=== PATIENT | male | born 1980 | race Caucasian/White ===

== ENCOUNTER 2018-03-09 01:48 | Emergency (ER) | payer OTHER, SELFPAY ==
[2018-03-09 02:11] VITALS: BMI 31.5
[2018-03-09 02:21] VITALS: BP 115/71; PULSE 77; RESP 15; TEMP 37.1; O2SAT 96; BMI 31.5
[2018-03-09 03:06] LABS: Urine Amphetamines Negative (Negative); Urine Barbiturates Negative (Negative); Urine Benzodiazepines Negative (Negative); Urine Cocaine Negative (Negative); Urine MDMA Negative (Negative); Urine Methadone Negative (Negative); Urine Methamphetamines Negative (Negative); Urine Morphine/Opi cutoff 2000 Negative (Negative); Urine Oxycodone Negative (Negative); Urine Phencyclidine Negative (Negative); Urine Tetrahydrocannabinol Negative (Negative); Urine Tricyclic Antidepressant Negative (Negative)
--- NOTE | 2018-03-09 03:27 | ED_ITS ---
HPI - Alcohol <Misty Juan J Yeung DO - Last Filed: 03/16/18 18:59> General Chief Complaint: Toxicology Problem Stated Complaint: ETOH Time Seen by Provider: 03/09/18 02:54 Source: patient, EMS and police Mode of arrival: EMS Limitations: altered mental status History of Present Illness HPI narrative: This is a 37-year-old male who was brought by EMS after being found in his car parked with the motor running and appearing intoxicated. Patient was somewhat difficult to awaken for the police department. EMS was contacted and they transferred the patient here to the ED. Patient initially was was able to walk to the bathroom give us a urine sample and return to room under his own power. Patient states he he has had beer and some hard liquor this evening. Denies other illicit. Patient does have prescription for gabapentin and escitalopram. The patient was not very interested in answering questions and went back to sleep. MD complaint: alcohol intoxication Related Data Home Medications Medication Instructions Recorded Confirmed buprenorphine-naloxone [Suboxone] 1 mirtha SUBLINGUAL #0 04/01/16 Previous Rx's Medication Instructions Recorded cyclobenzaprine 10 mg PO TIDP PRN #21 tab 04/01/16 gabapentin [Neurontin] 900 mg PO BID #180 cap 04/04/16 cyclobenzaprine 10 mg PO TID #21 tab 04/07/16 Allergies Allergy/AdvReac Type Severity Reaction Status Date / Time Penicillins [PENICILLINS] Allergy Unknown Unverified 09/06/17 11:53 Review of Systems <Misty Yeung DO - Last Filed: 03/16/18 18:59> Review of Systems All systems reviewed & are unremarkable except as noted in HPI and below Exam <Misty Yeung DO - Last Filed: 03/16/18 18:59> Narrative Exam Narrative: GEN: well nourished, well appearing male, awakens to verbal stimuli,, patient appears to be in mild distress. Patient appears intoxicated HEENT: Atraumatic HEART: Regular rate and rhythm without murmur, clicks, rubs. No carotid bruits , pulses are equal in upper and lower extremities LUNGS:Lungs clear to auscultation, no wheezes, rales, crackles, chest moves symmetrically ABD:bowel sounds normal, soft, non-tender, no guarding, rebound, rigidity MSCL: Non-tender,full range of motion, normal gait NEURO:CN 2-12 intact, sensation normal Initial Vital Signs Initial Vital Signs: Vital Signs Temperature 98.7 F 03/09/18 02:21 Pulse Rate 77 03/09/18 02:21 Respiratory Rate 15 03/09/18 02:21 Blood Pressure 115/71 03/09/18 02:21 Pulse Oximetry 96 03/09/18 02:21 <Harsha Martinez, DO - Last Filed: 03/09/18 08:30> Initial Vital Signs Initial Vital Signs: Vital Signs Temperature 98.7 F 03/09/18 02:21 Pulse Rate 77 03/09/18 02:21 Respiratory Rate 15 03/09/18 02:21 Blood Pressure 115/71 03/09/18 02:21 Pulse Oximetry 96 03/09/18 02:21 Course <Misty Yeung, DO - Last Filed: 03/16/18 18:59> Orders Ordered: ED Orders 03/09/18 02:00 Urine Drug Screen, Rapid Stat Reevaluation(s) Reevaluation #1: patient sleeping, normal respirations. Time: 04:15 Reevaluation #2: patient sleeping, easily arousable. Time: 05:35 Vital Signs - 8 hr 03/09/18 02:21 03/09/18 08:15 Temperature 98.7 F Pulse Rate 77 81 Respiratory Rate 15 18 Blood Pressure 115/71 Blood Pressure [Right Arm] 136/92 H Pulse Oximetry 96 98 <Harsha Martinez, DO - Last Filed: 03/09/18 08:30> Orders Ordered: ED Orders 03/09/18 02:00 Urine Drug Screen, Rapid Stat Reevaluation(s) Reevaluation #1: Patient speaks clearly and walks a straight line. He has capacity to make his own decisions and is requesting discharge. He states he lives 2 blocks away and plans to walk there and is requesting his phone and keys. A very strong suggestion not to go to his vehicle was made he states he would do what he wanted. Nursing did obtain bedside breathalyzer noting 0.086. We mentioned this to the patient, requested his keys back and he took them and left. Police notified Time: 08:10 Vital Signs - 8 hr 03/09/18 02:21 03/09/18 08:15 Temperature 98.7 F Pulse Rate 77 81 Respiratory Rate 15 18 Blood Pressure 115/71 Blood Pressure [Right Arm] 136/92 H Pulse Oximetry 96 98 MDM - Alcohol <Misty C Anjana, DO - Last Filed: 03/16/18 18:59> Lab Data Labs: Lab Results 03/09/18 Range/Units 02:00 Urine Opiates Screen Negative (Negative) Ur Oxycodone Screen Negative (Negative) Urine Methadone Screen Negative (Negative) Ur Barbiturates Screen Negative (Negative) U Tricyclic Antidepress Negative (Negative) Ur Phencyclidine Scrn Negative (Negative) Ur Amphetamines Screen Negative (Negative) U Methamphetamines Scrn Negative (Negative) Ur MDMA Scrn (Ecstasy) Negative (Negative) U Benzodiazepines Scrn Negative (Negative) Urine Cocaine Screen Negative (Negative) U Marijuana (THC) Screen Negative (Negative) MDM Narrative Medical decision making narrative: Patient continues to be monitored in the department. Signed out to Dr. Martinez for final disposition. <Harsha Martinez, DO - Last Filed: 03/09/18 08:30> Lab Data Labs: Lab Results 03/09/18 Range/Units 02:00 Urine Opiates Screen Negative (Negative) Ur Oxycodone Screen Negative (Negative) Urine Methadone Screen Negative (Negative) Ur Barbiturates Screen Negative (Negative) U Tricyclic Antidepress Negative (Negative) Ur Phencyclidine Scrn Negative (Negative) Ur Amphetamines Screen Negative (Negative) U Methamphetamines Scrn Negative (Negative) Ur MDMA Scrn (Ecstasy) Negative (Negative) U Benzodiazepines Scrn Negative (Negative) Urine Cocaine Screen Negative (Negative) U Marijuana (THC) Screen Negative (Negative) Discharge Plan Departure Patient Disposition: Home Clinical Impression: Alcohol intoxication Discharge Date/Time: 03/09/18 08:26 Interventions: ED Discharge Assessment Last Done: 03/09/18 08:21 Instructions: DI for Alcohol Abuse Activity Restrictions/Additional Instructions: It is recommended that you stop drinking alcohol. If you feel you need to go to [facility]. Call had of time ([phone]) to inquire about an available bed. If there are no beds called daily and 9 AM and 9 PM to check on bed availability. If you're feeling suicidal or having suicidal thoughts, contact the suicide hotline: . Prescriptions: No Action buprenorphine-naloxone [Suboxone] 12 MG/3 MG film 1 mirtha Sublingual Qty: 0 RF: 0 cyclobenzaprine 10 MG tablet 10 mg PO TIDP PRNQty: 21 RF: 0 gabapentin [Neurontin] 300 MG capsule 900 mg PO BID Qty: 180 RF: 1 cyclobenzaprine 10 MG tablet 10 mg PO TID Qty: 21 RF: 0
[2018-03-09 08:15] VITALS: BP 136/92; PULSE 81; RESP 18; O2SAT 98
== END 2018-03-09 08:26 | disposition home or self-care (01) ==
PROVIDERS: Emergency Medicine; Emergency Provider Emergency Medicine; PCP Preventive Medicine Public Health & General Preventive Medicine
DX: F10.929 Alcohol use, unspecified with intoxication, unspecified (principal)
CPT/HCPCS: 80305; 99282; 99283

== ENCOUNTER 2018-07-14 08:51 | Emergency (ER) | payer OTHER, SELFPAY ==
[2018-07-14 09:04] VITALS: BP 145/89; PULSE 123; RESP 20; TEMP 37.6; O2SAT 95; BMI 31.5
--- NOTE | 2018-07-14 09:16 | PC.NURSE ---
Pt states son positive for flu, flu test sent
--- NOTE | 2018-07-14 09:49 | ED.URI ---
HPI - URI/Sore Throat General Chief Complaint: Upper Respiratory Symptoms Stated Complaint: States fever, body aches, cough, vomiting Time Seen by Provider: 07/14/18 09:49 Source: patient and other (significant other) Mode of arrival: ambulatory Limitations: no limitations History of Present Illness HPI Narrative: This is a 37-year-old male comes to the emergency department with complaint of headache, body aches, low-grade temperatures, chills nausea and vomiting. Patient states symptoms started mildly day and got much worse yesterday. He states today that he definitely patient states that he took ibuprofen last night but has not taken anything today. He has been coughing, not particularly productive. No shortness of breath. He had vomiting today 1 episode that lasted about 5 min and no other episodes. He states he has had diarrhea and constipation when asked more specifically he states they have been alternating. Patient denies any medical problems. He initially denies taking any medications but then when question because he has a medication lift did state he takes gabapentin. Related Data Home Medications Medication Instructions Recorded Confirmed buprenorphine-naloxone [Suboxone] 1 mirtha SUBLINGUAL #0 04/01/16 Previous Rx's Medication Instructions Recorded cyclobenzaprine 10 mg PO TIDP PRN #21 tab 04/01/16 gabapentin [Neurontin] 900 mg PO BID #180 cap 04/04/16 cyclobenzaprine 10 mg PO TID #21 tab 04/07/16 ondansetron HCl [Zofran] 4 mg PO Q6-8H PRN #7 tab 07/14/18 oseltamivir [Tamiflu] 75 mg PO BID 5 Days #10 cap 07/14/18 Allergies Allergy/AdvReac Type Severity Reaction Status Date / Time Penicillins [PENICILLINS] Allergy Unknown Verified 07/14/18 10:03 Review of Systems Review of Systems ROS Unobtainable: All systems reviewed & are unremarkable except as noted in HPI and below Constitutional Reports chills, Denies fever(s), Reports headache(s), Denies lethargy and Denies weakness ENT Ears, Nose, Mouth, and Throat: Reports headache(s) Cardiovascular Denies chest pain, Denies irregular heart rhythm, Denies dyspnea and Denies dyspnea on exertion Respiratory Denies chest congestion, Reports cough, Denies excessive phlegm production, Denies dyspnea, Denies dyspnea on exertion and Denies wheezing Gastrointestinal Gastrointestinal: Denies abdominal pain, Denies change in bowel habits, Reports constipation, Reports diarrhea, Reports nausea and Reports vomiting Musculoskeletal Reports myalgias Integumentary/Breasts Denies rash Neurologic Reports headache(s) and Denies weakness Allergic/Immunologic Denies wheezing FOR[facility], [facility] Social History Smoking Status: Current some day smoker Social History Smoking Status: Current some day smoker Exam Narrative Exam Narrative: GEN: well nourished, well appearing male, alert and oriented x 3, patient appears to be in mild distress. HEENT: Atraumatic, pupils are equal round reactive to light, extraocular movements are intact, nares scant clear rhinorrhea, TMs are clear with no fluid, there is no conjunctival pallor. Throat is clear without any exudates, erythema, tonsillar enlargement or uvular deviation, no meningeal signs. HEART: Regular rate and rhythm without murmur, clicks, rubs. LUNGS:Lungs clear to auscultation, no wheezes, rales, crackles, chest moves symmetrically ABD:bowel sounds normal, soft, non-tender, no guarding, rebound, rigidity, no masses noted, no hepatosplenomegaly :No CVA tenderness MSCL: Non-tender, no muscle atrophy, muscles strength 5/5 upper and lower extremities, full range of motion NEURO:CN 2-12 intact, sensation normal. SKIN: No rashes, no petechiae Initial Vital Signs Initial Vital Signs: Vital Signs Temperature 99.7 F H 07/14/18 09:04 Pulse Rate 123 H 07/14/18 09:04 Respiratory Rate 20 07/14/18 09:04 Blood Pressure 145/89 H 07/14/18 09:04 Pulse Oximetry 95 07/14/18 09:04 Course Orders Ordered: ED Orders 07/14/18 09:15 Influenza A and B by PCR Rapid Stat Discontinued Medications Ketorolac Tromethamine (Toradol) 60 mg IM NOW ONE Stop: 07/14/18 09:59 Last Admin: 07/14/18 10:02 Dose: 60 mg Ondansetron HCl (Zofran Odt) 4 mg SL NOW ONE Stop: 07/14/18 09:59 Last Admin: 07/14/18 10:02 Dose: 4 mg Vital Signs - 8 hr 07/14/18 09:04 07/14/18 10:02 07/14/18 10:32 Temperature 99.7 F H 99.7 F H 99.7 F H Pulse Rate 123 H 110 H Respiratory Rate 20 20 Blood Pressure 145/89 H 117/68 Pulse Oximetry 95 94 MDM - URI/Sore Throat Lab Data Attestation: I reviewed the patient's lab results. Lab Results 07/14/18 Range/Units 09:15 Influenza A & B (PCR) Positive, type a A (Negative) MDM Narrative Medical decision making narrative: Discussed with patient he is influenza positive. He is in the time frame for Tamiflu and he elects to start Tamiflu. Patient was initially not very forthcoming with his history and had to be questioned multiple times to get what I believe is his full past medical history. We did give patient some Toradol as well some Zofran for nausea. He is not vomiting currently the department. Patient given a short-term script for Zofran as well. He does work at the [employer] with multiple people so given a work note. Discharge Plan Departure Patient Disposition: Home Clinical Impression: Influenza Discharge Date/Time: 07/14/18 10:33 Interventions: ED Discharge Assessment Last Done: 07/14/18 10:32 Instructions: DI for Influenza -- Adult Activity Restrictions/Additional Instructions: Follow-up with primary care if your symptoms are not resolving the next 7-10 days. Continue ibuprofen and/or Tylenol as needed for fevers/muscle aches Take Tamiflu twice daily x 5 days. You may continue home medications as prescribed. Return to the emergency department for persistent fevers that do not respond to ibuprofen and/or Tylenol, new chest, shortness of breath, difficulty with breathing, passing out, persistent vomiting or other new or concerning symptoms. Prescriptions: New oseltamivir [Tamiflu] 75 mg capsule 75 mg PO BID 5 Days Qty: 10 RF: 0 ondansetron HCl [Zofran] 4 mg tablet 4 mg PO Q6-8H PRN (Reason: nausea and vomiting) Qty: 7 RF: 0 No Action buprenorphine-naloxone [Suboxone] 12 MG/3 MG film 1 mirtha Sublingual Qty: 0 RF: 0 cyclobenzaprine 10 MG tablet 10 mg PO TIDP PRNQty: 21 RF: 0 gabapentin [Neurontin] 300 MG capsule 900 mg PO BID Qty: 180 RF: 1 cyclobenzaprine 10 MG tablet 10 mg PO TID Qty: 21 RF: 0 Referrals: Lenin Rincon MD [Primary Care Provider] - Stand Alone Forms: Work Release Note
[2018-07-14 10:02] VITALS: TEMP 37.6
[2018-07-14] MEDS: ONDANSETRON 4 MG ODT SL (10:02)
[2018-07-14] MEDS: KETOROLAC 60 MG/2 ML VIAL IM (10:02)
[2018-07-14 10:32] VITALS: BP 117/68; PULSE 110; RESP 20; TEMP 37.6; O2SAT 94
== END 2018-07-14 10:33 | disposition home or self-care (01) ==
PROVIDERS: Emergency Provider Emergency Medicine; PCP Preventive Medicine Public Health & General Preventive Medicine
DX: J11.1 Influenza due to unidentified influenza virus with other respiratory manifestations (principal)
CPT/HCPCS: 87400; 96372; 99282; 99283; J1885

== ENCOUNTER → 2018-07-24 14:56 | Outpatient (CLI) | payer OTHER, SELFPAY ==
[2018-07-24 15:24] LABS: Influenza A and B by PCR Rapid Negative (Negative)
== END ==
PROVIDERS: PCP Preventive Medicine Public Health & General Preventive Medicine; Visit Provider Physician Assistant
DX: J11.1 Influenza due to unidentified influenza virus with other respiratory manifestations (principal)
CPT/HCPCS: 87400

== ENCOUNTER → 2018-07-24 15:30 | Outpatient (CLI) | payer OTHER, SELFPAY ==
--- NOTE | 2018-07-24 15:33 | DI.RAD.S_ITS ---
PROCEDURE: XR CHEST 2V INDICATIONS: worsening cough TECHNIQUE: 2 views of the chest were acquired. COMPARISON: [facility], , CHEST 1 VIEW, 08/24/2015, 11:30. FINDINGS: Surgical changes and devices: None. Lungs and pleura: Lungs are clear. No pleural effusions or pneumothorax. Mediastinum: Mediastinal contours are normal. Heart size is normal. Bones and chest wall: No suspicious bony abnormalities. Soft tissues appear unremarkable. IMPRESSION: No acute disease Dictated by: Hans Earl M.D. on 07/24/2018 at 16:04 Approved by: Hans Earl M.D. on 07/24/2018 at 16:05
== END ==
LOC: DI 15:32
PROVIDERS: Visit Provider Physician Assistant
DX: R05 Cough (principal)
CPT/HCPCS: 71046; 87400

== ENCOUNTER 2020-01-22 20:58 | Emergency (ER) | payer OTHER, MEDICAID, SELFPAY ==
[2020-01-22 21:10] VITALS: BP 144/94; PULSE 110; RESP 15; TEMP 37.3; O2SAT 97; BMI 32.3
[2020-01-22] MEDS: LIDOCAINE 2% INJ MDV 20 ML (21:26)
--- NOTE | 2020-01-22 22:06 | ED_ITS ---
HPI - Wound/Laceration General Chief Complaint: Wound/Laceration Stated Complaint: left 5th finger cut Time Seen by Provider: 01/22/20 21:14 Source: patient and family Mode of arrival: Family Vehicle Limitations: no limitations History of Present Illness HPI narrative: Patient complains of laceration to the dorsal surface of the left 5th digit just distal to the MCP joint. Bleeding controlled. No numbness tingling or weakness. Related Data Home Medications Medication Instructions Recorded Confirmed buprenorphine-naloxone [Suboxone] 1 mirtha SUBLINGUAL #0 04/01/16 Previous Rx's Medication Instructions Recorded gabapentin [Neurontin] 900 mg PO BID #180 cap 04/04/16 ondansetron HCl [Zofran] 4 mg PO Q6-8H PRN #7 tab 07/14/18 sulfamethoxazole-trimethoprim 1 tab PO BID #10 tab 01/22/20 [Bactrim DS] Allergies Allergy/AdvReac Type Severity Reaction Status Date / Time Penicillins [PENICILLINS] Allergy Unknown Verified 07/24/18 14:55 Review of Systems Review of Systems Narrative: GENERAL: Denies chills, fatigue, malaise, fever, sweats. MUSCULOSKELETAL: denies weakness, joint pain, or bony pain, complains of finger pain SKIN: Denies rash, skin lesions, or other NEUROLOGIC: Denies weakness, numbness tingling or weakness PSYCHIATRIC: No concerning psychosocial issues. ROS Unobtainable: All systems reviewed & are unremarkable except as noted in HPI and below Patient History Social History Smoking Status: Current every day smoker Smoking Status: Current every day smoker alcohol intake frequency: 3 or more drinks per day Substance Use Type: former substance user Exam Narrative Exam Narrative: GENERAL: patient appears stated age. Well-nourished, well- developed patient, in no distress, not toxic HEAD: Atraumatic. Normocephalic. EXTREMITIES: No edema or joint tenderness. Examination left hand. There is a 2.5 cm oblique laceration on dorsal surface of the 5th digit just distal to the MCP joint. Examination in bloodless field. Blood pressure cuff used to reduce blood flow for hemostasis. Increments of 2 minutes at a time for examination as well as for suturing. There is no no bone or tendon injury seen. Patient able to flex and extend at the MCP PIP and PIP joints individually and against resistance. NEURO: AOx4. SKIN: No rash or erythema of visible areas PSYCH: Not anxious, is cooperative Initial Vital Signs Initial Vital Signs: Vital Signs Temperature 99.2 F 01/22/20 21:10 Pulse Rate 110 H 01/22/20 21:10 Respiratory Rate 15 01/22/20 21:10 Blood Pressure 144/94 H 01/22/20 21:10 Pulse Oximetry 97 01/22/20 21:10 Procedures Laceration Repair Laceration 1: Site: other (Left 5th digit) Side (If applicable): left Size (cm): 2.5 Description: linear Depth: simple, single layer Local Anesthetic: lidocaine 2% Amount of anesthesia used (mL): 2 Pre-repair: wound explored and irrigated extensively Skin layer closed with: nylon Size (cm): 4-0 Number of sutures: 6 Technique: simple, interrupted Course Orders Ordered: Discontinued Medications Bacitracin (Bacitracin) 1 applic TOP NOW ONE Stop: 01/22/20 22:12 Last Admin: 01/22/20 22:14 Dose: 1 applic Documented by: ANGELO Diphtheria/Tetanus/Acell Pertussis (Adacel) 0.5 ml IM .ONCE ONE Stop: 01/22/20 22:07 Last Admin: 01/22/20 22:13 Dose: 0.5 ml Documented by: ANGELO Trimethoprim/Sulfamethoxazole (Bactrim Ds) 1 tab PO NOW ONE Stop: 01/22/20 22:07 Last Admin: 01/22/20 22:12 Dose: 1 tab Documented by: OLIVERL Reevaluation(s) Reevaluation #1: No bleeding at time of discharge. Sensation intact to tip of finger, hand and fingers on the left side warm soft and pink. Brisk cap refills Time: 22:12 Consultations Consultation #1: s/w ortho dr back, appropriate treatment done here. He will see patient in the office. Stitches out in 12 days. Time: 22:13 Vital Signs Vital signs: Vital Signs - 8 hr 01/22/20 21:10 01/22/20 22:32 Temperature 99.2 F Pulse Rate 110 H 88 Respiratory Rate 15 16 Blood Pressure 144/94 H 139/81 Pulse Oximetry 97 99 MDM - Wound/Laceration Differential Diagnosis Differential diagnosis: Likely laceration MDM Narrative Medical decision making narrative: No imaging indicated this time. Based visualized bloodless. No foreign body seen no bony injury or tendon injury seen. Discharge Plan Departure Patient Disposition: Home Clinical Impression: Laceration Discharge Date/Time: 01/22/20 22:32 Instructions: DI for Laceration Repair Activity Restrictions/Additional Instructions: Change dressing twice a day with warm soap and water then apply topical antibiotic and nonocclusive dressing. Keep in splint until office time in 12 days to have 6 stitches removed. Return if worse or if any questions or con cerns or fever or increased pain in the finger discharge from the finger or discoloration of the finger. Called provided orthopedic office in the morning for office recheck within a week. Be sure to complete antibiotic prescription. 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 This may cause tearing of the stitches and skin. Prescriptions: New sulfamethoxazole-trimethoprim [Bactrim DS] 800-160 mg tablet 1 tab PO BID Qty: 10 RF: 0 No Action buprenorphine-naloxone [Suboxone] 12 MG/3 MG film 1 mirtha Sublingual Qty: 0 RF: 0 gabapentin [Neurontin] 300 MG capsule 900 mg PO BID Qty: 180 RF: 1 ondansetron HCl [Zofran] 4 mg tablet 4 mg PO Q6-8H PRN (Reason: nausea and vomiting) Qty: 7 RF: 0 Referrals: Sharmin Ribeiro MD [Primary Care Provider] - Sonny Back MD [Physician] -
[2020-01-22] MEDS: TRIMETH/SULFA 160/800 (DS) TABLET 1 TAB PO (22:12)
[2020-01-22] MEDS: TET,DIPH,PERTUSS(ACELL),VAC/PF 0.5 ML SYRINGE IM (22:13)
[2020-01-22] MEDS: BACITRACIN OINT 0.9 GM PCKT 1 APPLIC TOP (22:14)
[2020-01-22 22:32] VITALS: BP 139/81; PULSE 88; RESP 16; O2SAT 99
== END 2020-01-22 22:32 | disposition home or self-care (01) ==
PROVIDERS: Emergency Provider Emergency Medicine; PCP Family Medicine
DX: S61.217A Laceration without foreign body of left little finger without damage to nail, initial encounter (principal); W45.8XXA Other foreign body or object entering through skin, initial encounter; Z23 Encounter for immunization
CPT/HCPCS: 12001; 90471; 99283; 99284; 90715

== ENCOUNTER 2020-08-09 18:46 | Emergency (ER) | payer OTHER, MEDICAID, SELFPAY ==
[2020-08-09 19:00] VITALS: BP 149/76; PULSE 100; RESP 16; TEMP 36.8; O2SAT 97; BMI 33.0
--- NOTE | 2020-08-09 19:15 | ED.SKABFB ---
HPI - Skin/Abscess/Foreign Bdy General Chief complaint: Skin/Abscess/Foreign Body Stated complaint: Rt leg/pelvic/abdomen pain/ Swelling Time Seen by Provider: 08/09/20 19:15 Source: patient Mode of arrival: Ambulatory Limitations: no limitations History of Present Illness HPI narrative: 39-year-old gentleman presents with history of chronic pain syndrome and history of prescription opioid overuse currently on Suboxone with current complaint of itching and pain in the groin and around his scrotum. He notes multiple areas of cysts some of which are draining over his scrotum and and increased area pain and tenderness in the right groin with significant pruritus in that area as well. No fevers, dysuria, abdominal pain, flank pain no new sexual contacts or concerns for track sexually transmitted infection. He does note that he did recently have bilateral fungal infections to the palms of both hands and is worried that this may have spread to his scrotum. He has been using fluconazole cream to hands and scrotum. Related Data Home Medications Medication Instructions Recorded Confirmed buprenorphine-naloxone [Suboxone] 1 mirtha SUBLINGUAL #0 04/01/16 Previous Rx's Medication Instructions Recorded gabapentin [Neurontin] 900 mg PO BID #180 cap 04/04/16 ondansetron HCl [Zofran] 4 mg PO Q6-8H PRN #7 tab 07/14/18 sulfamethoxazole-trimethoprim 1 tab PO BID #10 tab 01/22/20 [Bactrim DS] buprenorphine-naloxone [Suboxone] 1 film BUCCAL TID 4 Days #4 ea 08/09/20 clindamycin HCl 300 mg PO TID #30 cap 08/09/20 sulfamethoxazole-trimethoprim 1 tab PO BID #20 tab 08/09/20 [Bactrim DS] Allergies Allergy/AdvReac Type Severity Reaction Status Date / Time Penicillins [PENICILLINS] Allergy Unknown Verified 08/09/20 19:00 Review of Systems Review of Systems ROS Unobtainable: All systems reviewed & are unremarkable except as noted in HPI and below Patient History Medical History Chronic pain syndrome Social History Smoking Status: Current every day smoker Smoking Status: Current every day smoker alcohol intake frequency: 3 or more drinks per day Substance Use Type: former substance user Exam Narrative Exam Narrative: General: Healthy appearing, in no acute distress. Able to give a complete and coherent history. Well-nourished well-developed HEENT: Moist mucous membranes, normal sclera with reactive pupils, Respiratory: Lungs are clear to auscultation, no wheezing no rales no rhonchi. Full and symmetrical air movement Cardiac: Regular rate and rhythm no murmurs no bruits Abdomen: Soft, nontender, good bowel tones, no flank pain Skin: Warm and dry, Genital: Multiple seborrheic cysts anywhere from 3-7 mm 1 of which is slightly draining (cultures obtained) none of which appear acutely infected. Possibility of hidradenitis suppurativa. Right groin has a 3 x 5 area of tenderness unclear if this is a deep abscess or an enlarged lymph node with surrounding areas cellulitis from the groin over the majority of the medial aspect of the thigh. Neurologic: Grossly neurologically intact with no obvious asymmetries or abnormalities Extremities: No trauma, well perfused Psych: Cooperative, appropriate insight and affect Ultrasound of the right groin: Area of interest does appear to be a developing abscess with central necrosis. Initial Vital Signs Initial Vital Signs: Vital Signs Temperature 98.3 F 08/09/20 19:00 Pulse Rate 100 H 08/09/20 19:00 Respiratory Rate 16 08/09/20 19:00 Blood Pressure 149/76 H 08/09/20 19:00 Pulse Oximetry 97 08/09/20 19:00 Procedures Abscess I/D Right groin: Site: other (Right groin, ultrasound guidance used due to depth of the abscess and proximity to inguinal vessels) Side (if applicable): right Local Anesthetic: lidocaine 1% Amount of anesthesia used (mL): 10 Amount of fluid expressed (mL): 5 Irrigation: No Packing used?: none Course Orders Ordered: ED Orders 08/09/20 19:38 Wound Culture and Gram Stain Stat 08/09/20 20:00 Wound Culture and Gram Stain Stat 08/09/20 20:22 Blood Culture Stat Complete Blood Count AUTO DIFF Stat Comprehensive Metabolic Panel Stat Lactate (Lactic Acid) Stat Discontinued Medications Ceftriaxone Sodium/Dextrose (Rocephin) 2 gm in 50 mls @ 100 mls/hr IV NOW ONE Stop: 08/09/20 20:35 Last Infusion: 08/09/20 21:02 Dose: 0 mls/hr Documented by: Admin: 08/09/20 20:33 Dose: 100 mls/hr Documented by: MARION Lidocaine/Sodium Bicarbonate (Lido 1%/Sod Bicarb 8.4% (10ml) 10 Ml Syringe) 10 ml INJ NOW ONE Stop: 08/09/20 19:41 Last Admin: 08/09/20 20:38 Dose: 10 ml Documented by: MARION Vital Signs Vital signs: Vital Signs - 8 hr 08/09/20 19:00 Temperature 98.3 F Pulse Rate 100 H Respiratory Rate 16 Blood Pressure 149/76 H Pulse Oximetry 97 MDM - Skin/Abscess/Foreign Bdy Medical Records Attestation: I reviewed the patient's medical records. Lab Data Attestation: I reviewed the patient's lab results. Result diagrams: 08/09/20 20:22 08/09/20 20:22 Labs: Lab Results 08/09/20 08/09/20 08/09/20 Range/Units 20:22 20:22 20:22 WBC 11.2 H (4.5-11.0) X10^3/uL RBC 4.57 (4.5-5.9) X10^6/uL Hgb 14.2 (13.5-17.5) g/dL Hct 42.9 (41-53) % MCV 93.8 (80-100) fL MCH 31.2 (26-34) PG MCHC 33.2 (30-36) % RDW 13.2 (11.6-14.8) % Plt Count 274 (150-400) X10^3/uL Neut % (Auto) 74.8 (50-75) % Lymph % (Auto) 17.1 L (25-40) % [place] % (Auto) 5.8 (3-14) % Eos % (Auto) 1.5 L (2-4) % Baso % (Auto) 0.8 (0-2) % Neut # (Auto) 8300 H (6072-2995) /uL Lymph # (Auto) 1900 (0537-1419) /uL [place] # (Auto) 700 (0-900) /uL Eos # (Auto) 200 (0-450) /uL Baso # (Auto) 100 (0-100) /uL Sodium 138 (137-145) mmol/L Potassium 3.8 (3.4-5.1) mmol/L Chloride 105 (98-107) mmol/L Carbon Dioxide 30 (22-32) mmol/L BUN 16 (9-20) mg/dL Creatinine 0.79 (0.66-1.25) mg/dL Estimated GFR > 60.0 (>60) mL/min BUN/Creatinine Ratio 20.3 (6-22) Glucose 124 H (70-100) mg/dL Lactate 1.2 (0.7-2.1) mmol/L Calcium 9.1 (8.4-10.2) mg/dL Total Bilirubin 0.5 (0.2-1.3) mg/dL AST 28 (17-59) IU/L ALT 27 (<50) IU/L Alkaline Phosphatase 74 (38-126) U/L Total Protein 6.8 (6.3-8.2) g/dL Albumin 4.0 (3.5-5.0) g/dL Globulin 2.8 (1.7-4.1) g/dL Albumin/Globulin Ratio 1.4 (1.0-2.8) MDM Narrative Medical decision making narrative: 39-year-old gentleman with multiple cystic lesions over his scrotum some associated with hair follicles. Unclear whether this is hidradinitis supurvita or simply multiple perifollicular cysts. These do not seem to be infected. On the other hand, he does have an abscess in the right groin that was relatively deep and required ultrasound guidance for drainage. Culture was obtained. He was given IV antibiotics and blood work does not suggest that he has more concerning infection that requires hospital admission or sepsis. He does have expanding cellulitis from the groin abscess over the anterior medial thigh. Will be discharged home with both clindamycin and Bactrim for antibiotic coverage in instructed to return to the emergency room should he have worsening symptoms. Discharge Plan Departure Patient Disposition: Home Clinical Impression: Hidradenitis suppurativa Abscess of skin or subcutaneous tissue Qualifiers: Site of cutaneous abscess: extremity Site of cutaneous abscess of extremity: lower extremity Laterality: right Qualified Code(s): L02.415 - Cutaneous abscess of right lower limb Cellulitis Qualifiers: Site of cellulitis: extremity Site of cellulitis of extremity: lower extremity Laterality: right Qualified Code(s): L03.115 - Cellulitis of right lower limb Instructions: DI for Cellulitis -- Adult, Hidradenitis Suppurativa, DI for Skin Abscess Activity Restrictions/Additional Instructions: Thank you for coming in today I think you have 2 separate issues today. The multiple small bumps on the surface of your scrotum are related to blocked glands rather than actual infection. Any infection that is associated with them will also be helped with the antibiotics You do clearly have an abscess in the right groin with cellulitis in the surrounding skin. I was able to drain the abscess using ultrasound guidance and a culture was sent. I am going to suggest that you complete the course of 2 antibiotics to make sure that this resolves completely. Prescriptions were electronically transmitted to [facility] For the pain related to the cellulitis and the abscess I am going to suggest that you increase your Suboxone to 1 strip 3 times a day for the next 2-4 days. I will give you a prescription for a total of for extra strips. Please take these discharge instructions with you to your next ideal option appointment to explain the additional prescription. Using 400 mg of ibuprofen (2 wonu-lwu-[id number] pills) and 1 Tylenol every 6 hours can be very helpful in controlling pain. If you have worsening symptoms you do need to return to the emergency department I wish you the best Prescriptions: New sulfamethoxazole-trimethoprim [Bactrim DS] 800-160 mg tablet 1 tab PO BID Qty: 20 RF: 0 clindamycin HCl 300 mg capsule 300 mg PO TID Qty: 30 RF: 0 buprenorphine-naloxone [Suboxone] 8-2 mg film 1 film buccal TID 4 Days Qty: 4 RF: 0 No Action buprenorphine-naloxone [Suboxone] 12 MG/3 MG film 1 mirtha Sublingual Qty: 0 RF: 0 gabapentin [Neurontin] 300 MG capsule 900 mg PO BID Qty: 180 RF: 1 sulfamethoxazole-trimethoprim [Bactrim DS] 800-160 mg tablet 1 tab PO BID Qty: 10 RF: 0 ondansetron HCl [Zofran] 4 mg tablet 4 mg PO Q6-8H PRN (Reason: nausea and vomiting) Qty: 7 RF: 0 Referrals: Sharmin Ribeiro MD [Primary Care Provider] - Stand Alone Forms: Work Release Note
--- NOTE | 2020-08-09 20:28 | PC.NURSE ---
patient has multiple abscess in his groin in various stages of healing and progression. one was draining scant serosanguinous exudate and purulent discharge with expression
[2020-08-09] MEDS: CEFTRIAXONE 2 GM/50 ML FROZ.PIGGY IV (20:33)
[2020-08-09] MEDS: LIDO 1%/SOD BICARB 8.4% (10ML) 10 ML SYRINGE INJ (20:38)
[2020-08-09 20:40] LABS: Add Manual Diff / Slide Review NO; Basophils Absolute Auto 100 /uL (0-100); Basophils Percent Auto 0.8 % (0-2); Eosinophils Absolute Auto 200 /uL (0-450); Eosinophils Percent Auto 1.5 % (2-4); Hematocrit 42.9 % (41-53); Hemoglobin 14.2 g/dL (13.5-17.5); Lymphocytes Absolute Auto 1900 /uL (1100-4500); Lymphocytes Percent Auto 17.1 % (25-40); Mean Corpuscular HGB Conc 33.2 % (30-36); Mean Corpuscular Hemoglobin 31.2 PG (26-34); Mean Corpuscular Volume 93.8 fL (80-100); Monocytes Absolute Auto 700 /uL (0-900); Monocytes Percent Auto 5.8 % (3-14); Neutrophils Absolute Auto 8300 /uL (1500-7000); Neutrophils Percent Auto 74.8 % (50-75); Platelet Count 274 X10^3/uL (150-400); Red Blood Cell Count 4.57 X10^6/uL (4.5-5.9); Red Cell Distribution Width 13.2 % (11.6-14.8); White Blood Cell Count 11.2 X10^3/uL (4.5-11.0)
[2020-08-09 20:46] LABS: Lactate (Lactic Acid) 1.2 mmol/L (0.7-2.1)
[2020-08-09 20:49] LABS: Alanine Aminotransferase 27 IU/L (<50); Albumin Globulin Ratio 1.4 (1.0-2.8); Alkaline Phosphatase 74 U/L (38-126); Aspartate Aminotransferase 28 IU/L (17-59); BUN Creatinine Ratio 20.3 (6-22); Bilirubin Total 0.5 mg/dL (0.2-1.3); Blood Urea Nitrogen 16 mg/dL (9-20); Calcium 9.1 mg/dL (8.4-10.2); Carbon Dioxide 30 mmol/L (22-32); Chloride 105 mmol/L (98-107); Estimated Glomerular Filt Rate > 60.0 mL/min (>60); Globulin 2.8 g/dL (1.7-4.1); Glucose 124 mg/dL (70-100); HEMOLYSIS 21 (0-50); Potassium 3.8 mmol/L (3.4-5.1); Sodium 138 mmol/L (137-145); Total Protein 6.8 g/dL (6.3-8.2)
[2020-08-09 23:10] VITALS: BP 112/57; PULSE 85; RESP 12; O2SAT 96
== END 2020-08-09 23:12 | disposition home or self-care (01) ==
PROVIDERS: Emergency Provider Emergency Medicine; PCP Family Medicine
DX: L73.2 Hidradenitis suppurativa (principal); L02.415 Cutaneous abscess of right lower limb; L03.115 Cellulitis of right lower limb
CPT/HCPCS: 10060; 36415; 80053; 83605; 85025; 87040; 87070; 87075; 87077; 87147; 87186; 87205; 96365; 99281; 99284; J0696

== ENCOUNTER 2021-06-08 14:35 | Emergency (ER) | payer OTHER, MEDICAID, SELFPAY ==
[2021-06-08 14:58] VITALS: BP 147/83; PULSE 87; RESP 18; TEMP 37.1; O2SAT 96; BMI 31.5
[2021-06-08 15:45] LABS: COVID19 -Nasal RAPID Negative (Negative)
--- NOTE | 2021-06-08 17:04 | ED_ITS ---
HPI - URI/Sore Throat <HARRIETT Ramirez - Last Filed: 06/08/21 17:09> General Chief Complaint: Upper Respiratory Symptoms Stated Complaint: covid symptoms Time Seen by Provider: 06/08/21 15:47 Source: patient Mode of arrival: Ambulatory History of Present Illness HPI Narrative: The patient is a 40-year-old male current everyday smoker with history of abscess who presents with a chief complaint of possible COVID. He was exposed yesterday, as his son has COVID. He has been exposed multiple times over the past few days. Presents with several symptoms including cough, congestion, and headache. He denies any fevers, does not complain of some muscle aches in his back. He does note that he fell several weeks ago onto his right side and is slightly concerned about that. He slipped on the ice. Had a mechanical fall at that time. He is not taking anything to feel better. He has unvaccinated ?for good reasons. Related Data Home Medications Medication Instructions Recorded Confirmed buprenorphine 12 mg-naloxone 3 mg 1 mirtha SUBLINGUAL #0 04/01/16 sublingual film (Suboxone) Previous Rx's Medication Instructions Recorded gabapentin 300 mg capsule 900 mg PO BID #180 cap 04/04/16 (Neurontin) ondansetron HCl 4 mg tablet 4 mg PO Q6-8H PRN #7 tab 07/14/18 (Zofran) sulfamethoxazole 800 1 tab PO BID #10 tab 01/22/20 mg-trimethoprim 160 mg tablet (Bactrim DS) clindamycin HCl 300 mg capsule 300 mg PO TID #30 cap 08/09/20 sulfamethoxazole 800 1 tab PO BID #20 tab 08/09/20 mg-trimethoprim 160 mg tablet (Bactrim DS) Allergies Allergy/AdvReac Type Severity Reaction Status Date / Time Penicillins [PENICILLINS] Allergy Unknown Verified 06/10/21 12:50 Review of Systems <HARRIETT Ramirez - Last Filed: 06/08/21 17:09> Review of Systems Narrative: GENERAL: See HPI HEENT: See HPI RESPIRATORY: Denies dyspnea, cough, wheezing, hemoptysis, sputum. CARDIOVASCULAR: Denies chest pain, palpitations, orthopnea, edema, GASTROINTESTINAL: Denies nausea, vomiting, abdominal pain, diarrhea, constipation, melena. : Denies dysuria, frequency, incontinence, hematuria, urinary retention. MUSCULOSKELETAL: denies weakness, joint pain, or bony pain SKIN: Denies rash, skin lesions, or other NEUROLOGIC: Denies weakness, headache, numbness, change in speech, confusion, seizures, incoordination. PSYCHIATRIC: No concerning psychosocial issues. 12 point review of systems is negative except for those stated above Patient History <ASIM Ramirez- - Last Filed: 06/08/21 17:09> Medical History Chronic pain syndrome Social History Smoking Status: Current every day smoker Smoking Status: Current every day smoker alcohol intake frequency: 3 or more drinks per day Substance Use Type: former substance user Exam <ASIM Ramirez-CRISTI - Last Filed: 06/08/21 17:09> Narrative Exam Narrative: GENERAL: This is a well-nourished, well-developed patient, in no acute distress holding a child HEAD: Atraumatic. Normocephalic. No temporal or scalp tenderness. EYES: Pupils equal round and reactive. Extraocular motions intact. No scleral icterus. No injection or drainage. ENT: Nose without bleeding, purulent drainage or septal hematoma. Throat without erythema, tonsillar hypertrophy or exudate. Uvula midline. Airway patent. Bilateral TMs pearly perez. NECK: Trachea midline. No JVD or lymphadenopathy. Supple, nontender, no meningeal signs. CARDIOVASCULAR: Regular rate and rhythm RESPIRATORY: Clear to auscultation. Breath sounds equal bilaterally. No wheezes, rales, or rhonchi. No cough. No increased respiratory effort. No accessory muscle use. GASTROINTESTINAL: Abdomen soft, non-tender, nondistended. No hepato- splenomegaly, or palpable masses. No guarding. EXTREMITIES: No clubbing, cyanosis, or edema. No joint tenderness, effusion, or edema noted. BACK: Nontender without deformity or crepitance. No flank tenderness. No pain to midline palpation of T or L-spine. Pain to palpation of right-sided paraspinal muscles and lower ribs. No visible abnormality. NEURO: AOx3. SKIN: No rash or erythema on visible skin. Initial Vital Signs Initial Vital Signs: Vital Signs Temperature 98.8 F 06/08/21 14:58 Pulse Rate 87 06/08/21 14:58 Respiratory Rate 18 06/08/21 14:58 Blood Pressure 147/83 H 06/08/21 14:58 Pulse Oximetry 96 06/08/21 14:58 <Randy Joseph MD - Last Filed: 06/14/21 12:18> Initial Vital Signs Initial Vital Signs: Vital Signs Temperature 98.8 F 06/08/21 14:58 Pulse Rate 87 06/08/21 14:58 Respiratory Rate 18 06/08/21 14:58 Blood Pressure 147/83 H 06/08/21 14:58 Pulse Oximetry 96 06/08/21 14:58 Scores <HARRIETT Ramirez - Last Filed: 06/08/21 17:09> GCS [place] coma scale eye opening: Spontaneous [place] coma scale verbal response: Orientated [place] coma scale motor response: Obey commands [place] coma scale total score: 15 <Randy Joseph MD - Last Filed: 06/14/21 12:18> GCS [place] coma scale total score: 15 Course <HARRIETT Ramirez - Last Filed: 06/08/21 17:09> Orders Ordered: ED Orders 06/08/21 15:00 COVID19 -Nasal swab/Pre-Proc Stat Vital Signs Vital signs: Vital Signs - 8 hr 06/08/21 14:58 Temperature 98.8 F Pulse Rate 87 Respiratory Rate 18 Blood Pressure 147/83 H Pulse Oximetry 96 <Randy Joseph MD - Last Filed: 06/14/21 12:18> Orders Ordered: ED Orders 06/08/21 15:00 COVID19 -Nasal swab/Pre-Proc Stat Vital Signs Vital signs: Vital Signs - 8 hr 06/08/21 14:58 Temperature 98.8 F Pulse Rate 87 Respiratory Rate 18 Blood Pressure 147/83 H Pulse Oximetry 96 MDM - URI/Sore Throat <HARRIETT Ramirez - Last Filed: 06/08/21 17:09> Lab Data Labs: Lab Results 06/08/21 Range/Units 15:00 SARS-CoV-2 (PCR) Negative (Negative) MDM Narrative Medical decision making narrative: The patient is a 40-year-old male who presents with a chief complaint of possible COVID as he was exposed and has symptoms including headache and congestion. He does test negative today. I did discuss at length that he could still be positive despite a negative test encouraged him to quarantine since he was exposed, is unvaccinated and has symptoms. Regarding his pain after a fall several weeks ago, he has no midline spinal pain to palpation. I did discussed the possibility of an x-ray for his ribs to evaluate for fracture, but the patient declined. Encouraged [id number] measures as needed and able. The patient appears very well, nontoxic and hemodynamically stable throughout his stay in the ER. I did give him a work note to encourage him to stay home and quarantine given his exposure and symptoms. <Randy Joseph MD - Last Filed: 06/14/21 12:18> Lab Data Labs: Lab Results 06/08/21 Range/Units 15:00 SARS-CoV-2 (PCR) Negative (Negative) Discharge Plan Departure Patient Disposition: Home Clinical Impression: Upper respiratory infection Instructions: DI for Viral Upper Respiratory Infection -- Adult, Coronavirus Disease 2019, Can COVID-19 be prevented? Activity Restrictions/Additional Instructions: Thank you for trusting us with your care today. As discussed, your COVID test is negative. However given that you have symptoms and have been exposed I encourage you to stay in quarantine at home. You may be positive despite a negative test today Please rest and push fluids. Back to the emergency department for any acute concerns. Prescriptions: No Action buprenorphine-naloxone [Suboxone] 12 MG/3 MG film 1 mirtha Sublingual Qty: 0 0RF gabapentin [Neurontin] 300 MG capsule 900 mg PO BID Qty: 180 1RF sulfamethoxazole-trimethoprim [Bactrim DS] 800-160 mg tablet 1 tab PO BID Qty: 10 0RF ondansetron HCl [Zofran] 4 mg tablet 4 mg PO Q6-8H PRN (Reason: nausea and vomiting) Qty: 7 0RF sulfamethoxazole-trimethoprim [Bactrim DS] 800-160 mg tablet 1 tab PO BID Qty: 20 0RF clindamycin HCl 300 mg capsule 300 mg PO TID Qty: 30 0RF Referrals: Sharmin Ribeiro MD [Primary Care Provider] - Stand Alone Forms: Work Release Note <Randy Joseph MD - Last Filed: 06/14/21 12:18> Cosign ED Attending Cosignature Attestation: I was immediately available in the department for consultation. This documentation has been reviewed and I agree with assessment and plan. Supervised by Randy Joseph MD
== END 2021-06-08 16:50 | disposition home or self-care (01) ==
PROVIDERS: Emergency Medicine; Emergency Provider Nurse Practitioner Family; PCP Family Medicine
DX: J06.9 Acute upper respiratory infection, unspecified (principal); Z20.822 Contact with and (suspected) exposure to COVID-19
CPT/HCPCS: 87635; 99281; 99282; C9803

== ENCOUNTER 2021-06-10 12:37 | Emergency (ER) | payer OTHER, MEDICAID, SELFPAY ==
[2021-06-10 12:40] VITALS: BP 171/77; PULSE 90; RESP 14; TEMP 36.7; O2SAT 98
--- NOTE | 2021-06-10 12:58 | ED.URI ---
HPI - URI/Sore Throat <CECELIA Wayne - Last Filed: 06/10/21 14:09> General Chief Complaint: Upper Respiratory Symptoms Stated Complaint: Wants covid test Time Seen by Provider: 06/10/21 12:47 Source: patient Mode of arrival: Ambulatory History of Present Illness HPI Narrative: The patient is a 40-year-old male current everyday smoker who presents with a chief complaint of possible COVID.? Patient is unvaccinated, has had frequent exposures and brings his son back for COVID testing as well. Patient endorses that today is day 5 of his symptoms which have been progressive and include muscle aches, cough, and fatigue. Patient's son recently had COVID, he brings another 1 of his sons in with him today for COVID testing again. They were both here 2 days ago for COVID testing. He has been exposed multiple times over the past few days.? Presents with several symptoms including cough, congestion, and headache.? He denies any fevers, does complain of some muscle aches in his back.? He is not taking anything to feel better.? He has unvaccinated ?for good reasons. Related Data Home Medications Medication Instructions Recorded Confirmed buprenorphine 12 mg-naloxone 3 mg 1 mirtha SUBLINGUAL #0 04/01/16 sublingual film (Suboxone) Previous Rx's Medication Instructions Recorded gabapentin 300 mg capsule 900 mg PO BID #180 cap 04/04/16 (Neurontin) ondansetron HCl 4 mg tablet 4 mg PO Q6-8H PRN #7 tab 07/14/18 (Zofran) sulfamethoxazole 800 1 tab PO BID #10 tab 01/22/20 mg-trimethoprim 160 mg tablet (Bactrim DS) clindamycin HCl 300 mg capsule 300 mg PO TID #30 cap 08/09/20 sulfamethoxazole 800 1 tab PO BID #20 tab 08/09/20 mg-trimethoprim 160 mg tablet (Bactrim DS) Allergies Allergy/AdvReac Type Severity Reaction Status Date / Time Penicillins [PENICILLINS] Allergy Unknown Verified 06/10/21 12:50 Review of Systems <CECELIA Wayne - Last Filed: 06/10/21 14:09> Review of Systems Narrative: General: denies fever, chills Head/Neck: denies headache, neck pain, endorses congestion Eyes: denies visual changes, eye pain Cardio: denies chest pain, palpitations Respiratory: denies shortness of breath, + cough GI: denies abdominal pain, nausea, vomiting, or diarrhea : denies dysuria, hematuria MSK: denies joint pain, muscle weakness Skin: denies rash, itching Neuro: denies numbness, tingling Patient History <CECELIA Wayne - Last Filed: 06/10/21 14:09> Medical History Chronic pain syndrome Social History Smoking Status: Current every day smoker Smoking Status: Current every day smoker alcohol intake frequency: 3 or more drinks per day Substance Use Type: former substance user Exam <CECELIA Wayne Last Filed: 06/10/21 14:09> Narrative Exam Narrative: Independently reviewed vitals signs and nursing notes. General: Awake, alert, nontoxic, no cardiorespiratory distress Head/Neck: Atraumatic, neck full range of motion Eyes: EOMI, conjunctiva normal Nose: nares patent, no rhinorrhea Mouth/Throat: moist mucus membranes, posterior pharynx normal, no oral lesions Cardio: Regular rate and rhythm, no peripheral edema Respiratory: respirations unlabored without wheezing, stridor, or rales. No retractions. GI: Abdomen soft, nontender MSK: Moves all extremities, neurovascularly intact Skin: Normal capillary refill, no rash Neuro: Normal speech and cognition, normal gait Initial Vital Signs Initial Vital Signs: Vital Signs Temperature 98.0 F 06/10/21 12:40 Pulse Rate 90 06/10/21 12:40 Respiratory Rate 14 06/10/21 12:40 Blood Pressure 171/77 H 06/10/21 12:40 Pulse Oximetry 98 06/10/21 12:40 <Misty Yeung DO - Last Filed: 06/10/21 14:23> Initial Vital Signs Initial Vital Signs: Vital Signs Temperature 98.0 F 06/10/21 12:40 Pulse Rate 90 06/10/21 12:40 Respiratory Rate 14 06/10/21 12:40 Blood Pressure 171/77 H 06/10/21 12:40 Pulse Oximetry 98 06/10/21 12:40 Course <CECELIA Wayne - Last Filed: 06/10/21 14:09> Orders Ordered: ED Orders 06/10/21 12:45 COVID19 -Nasal swab/Pre-Proc Stat Vital Signs Vital signs: Vital Signs - 8 hr 06/10/21 12:40 Temperature 98.0 F Pulse Rate 90 Respiratory Rate 14 Blood Pressure 171/77 H Pulse Oximetry 98 <Misty Yeung DO - Last Filed: 06/10/21 14:23> Orders Ordered: ED Orders 06/10/21 12:45 COVID19 -Nasal swab/Pre-Proc Stat Vital Signs Vital signs: Vital Signs - 8 hr 06/10/21 12:40 Temperature 98.0 F Pulse Rate 90 Respiratory Rate 14 Blood Pressure 171/77 H Pulse Oximetry 98 MDM - URI/Sore Throat <CECELIA Wayne - Last Filed: 06/10/21 14:09> Lab Data Labs: Lab Results 06/10/21 Range/Units 12:45 SARS-CoV-2 (PCR) Negative (Negative) MDM Narrative Medical decision making narrative: 40-year-old male presents to the emergency department again for COVID testing. He is unvaccinated, states wants a COVID test due to multiple exposures. He endorses muscle aches, congestion, headache. Presentation suggestive of viral syndrome/URI without evidence of hypoxia, respiratory distress, dehydration, or focal exam to suggest secondary bacterial infection. COVID negative. Discussed supportive treatments: Tylenol/Motrin as needed for pain/fever. OTC decongestant medications and/or antihistamines for symptomatic relief. Maintain adequate fluid intake. Follow-up with PCP as directed. Return to clinic/ER instructions discussed for new, not improving, or worsening symptoms. All questions answered. <Misty Yeung DO - Last Filed: 06/10/21 14:23> Lab Data Labs: Lab Results 06/10/21 Range/Units 12:45 SARS-CoV-2 (PCR) Negative (Negative) Discharge Plan Departure Patient Disposition: Home Clinical Impression: Encounter for laboratory testing for COVID-19 virus Upper respiratory infection Qualifiers: URI type: unspecified viral URI Qualified Code(s): J06.9 - Acute upper respiratory infection, unspecified Activity Restrictions/Additional Instructions: You have tested negative for COVID today. If you develop a fever or have a fever please avoid others. [id number] decongestants may help like Sudafed, Benadryl, ibuprofen and Tylenol. Please try stay hydrated, if you think your positive for COVID please quarantine. *What to do: *Please continue to take your regular medications as directed. [ ] New medication prescriptions sent to your pharmacy: [ ] [ ] New medication written as a paper prescription [ x] No new medications given *Please follow up with your primary care provider in 2-3 days, call for an appointment. Let them know you were seen in the Emergency Department and that we ask that you be seen in follow up. We will electronically transmit a record of today's note if your PCP is in our system *If you do not have a primary care provider please contact the [facility] Resource line at [phone]. They will ask some questions about your medical history and help get you set up with a doctor in the community. *Return to Emergency Department if you should have any new, worsening or concerning symptoms, such as [fever greater than 101F, chills, worsening pain, persistent vomiting or other bothersome symptoms] Prescriptions: No Action buprenorphine-naloxone [Suboxone] 12 MG/3 MG film 1 mirtha Sublingual Qty: 0 0RF gabapentin [Neurontin] 300 MG capsule 900 mg PO BID Qty: 180 1RF sulfamethoxazole-trimethoprim [Bactrim DS] 800-160 mg tablet 1 tab PO BID Qty: 10 0RF ondansetron HCl [Zofran] 4 mg tablet 4 mg PO Q6-8H PRN (Reason: nausea and vomiting) Qty: 7 0RF sulfamethoxazole-trimethoprim [Bactrim DS] 800-160 mg tablet 1 tab PO BID Qty: 20 0RF clindamycin HCl 300 mg capsule 300 mg PO TID Qty: 30 0RF Referrals: Sharmin Ribeiro MD [Primary Care Provider] - <Misty Yeung DO - Last Filed: 06/10/21 14:23> [facility] Attestation: I was immediately available in the department for consultation. Documentation has been reviewed.
[2021-06-10 13:18] LABS: COVID19 -Nasal RAPID Negative (Negative)
== END 2021-06-10 14:15 | disposition home or self-care (01) ==
PROVIDERS: Emergency Provider Nurse Practitioner Critical Care Medicine; PCP Family Medicine
DX: J06.9 Acute upper respiratory infection, unspecified (principal); B97.89 Other viral agents as the cause of diseases classified elsewhere; F17.200 Nicotine dependence, unspecified, uncomplicated; Z20.822 Contact with and (suspected) exposure to COVID-19
CPT/HCPCS: 87635; 99281; C9803

== ENCOUNTER 2021-06-21 15:59 | Emergency (ER) | payer OTHER, MEDICAID, SELFPAY ==
[2021-06-21 16:01] VITALS: BP 149/89; PULSE 77; RESP 18; TEMP 36.7; O2SAT 99
[2021-06-21 16:33] LABS: COVID19 -Nasal RAPID Negative (Negative)
--- NOTE | 2021-06-21 17:39 | ED_ITS ---
HPI - URI/Sore Throat <Nicholas Salas PA-C - Last Filed: 06/21/21 19:48> General Chief Complaint: Upper Respiratory Symptoms Stated Complaint: HEADACHE NO SMELL TASTE SOB Time Seen by Provider: 06/21/21 17:26 Source: patient Mode of arrival: Ambulatory History of Present Illness HPI Narrative: Patient is a 40-year-old male presenting to the emergency department for an evaluation headache, cough, and loss of taste. Patient states that he is experiencing symptoms for the past 3 days, noting that he has also experienced loss of smell. He states that he spent time with his grandchild this weekend a explains that his grandchild had begun to experience symptoms nasal congestion under his care. Patient states that he feels his sense of taste is returning, however he requests a COVID-19 test because he will be beginning a new job on Monday. Patient denies fever, chills, chest pain, shortness of breath, nausea, vomiting, diarrhea, abdominal pain, dysuria, hematuria, sore throat, earache, or any other concerning symptoms. No further concerns were voiced at this time. Related Data Home Medications Medication Instructions Recorded Confirmed buprenorphine 12 mg-naloxone 3 mg 1 mirtha SUBLINGUAL #0 04/01/16 sublingual film (Suboxone) Previous Rx's Medication Instructions Recorded gabapentin 300 mg capsule 900 mg PO BID #180 cap 04/04/16 (Neurontin) ondansetron HCl 4 mg tablet 4 mg PO Q6-8H PRN #7 tab 07/14/18 (Zofran) sulfamethoxazole 800 1 tab PO BID #10 tab 01/22/20 mg-trimethoprim 160 mg tablet (Bactrim DS) clindamycin HCl 300 mg capsule 300 mg PO TID #30 cap 08/09/20 sulfamethoxazole 800 1 tab PO BID #20 tab 08/09/20 mg-trimethoprim 160 mg tablet (Bactrim DS) Allergies Allergy/AdvReac Type Severity Reaction Status Date / Time Penicillins [PENICILLINS] Allergy Unknown Verified 06/10/21 12:50 Review of Systems <Nicholas Salas PA-C - Last Filed: 06/21/21 19:48> Constitutional Constitutional: Denies chills, Denies fatigue, Denies fever(s), Denies frequent falls, Reports headache(s), Denies lethargy and Denies weakness Eyes Eyes: Denies loss of vision ENT Ears, Nose, Mouth, and Throat: Denies change in voice, Denies dizziness, Reports headache(s), Reports nasal congestion, Denies neck pain, Denies sore throat, Denies throat swelling and Reports other (Loss of taste, loss of smell) Cardiovascular Cardiovascular: Denies chest pain, Denies irregular heart rhythm, Denies lightheadedness, Denies palpitations, Denies dyspnea, Denies dyspnea on exertion and Denies orthopnea Respiratory Respiratory: Reports cough, Denies dyspnea, Denies dyspnea on exertion and Denies wheezing Gastrointestinal Gastrointestinal: Denies abdominal pain, Denies change in bowel habits, Denies diarrhea, Denies nausea and Denies vomiting Genitourinary Genitourinary: Denies hematuria, Denies flank pain, Denies urinary incontinence and Denies urinary urgency Musculoskeletal Musculoskeletal: Denies back pain, Denies muscle weakness, Denies neck pain, Denies numbness and Denies tingling Integumentary/Breasts Skin/Breast: Denies pruritus, Denies erythema, Denies rash and Denies wounds Neurologic Neurologic: Denies behavioral changes, Denies confusion, Denies dizziness, Denies frequent falls, Reports headache(s), Denies loss of vision, Denies numbness, Denies tingling and Denies weakness Psychiatric Psychiatric: Denies behavioral changes and Denies confusion Endocrine Endocrine: Denies fatigue and Denies palpitations Allergic/Immunologic Allergic/Immunologic: Denies throat swelling and Denies wheezing Patient History <Nicholas Salas PA-C - Last Filed: 06/21/21 19:48> Medical History Chronic pain syndrome Social History Smoking Status: Current every day smoker Smoking Status: Current every day smoker alcohol intake frequency: 3 or more drinks per day Substance Use Type: former substance user Exam <Nicholas Salas PA-C - Last Filed: 06/21/21 19:48> Narrative Exam Narrative: GENERAL: 40 year old patient appears stated age. Well-developed patient, in no acute distress. HEAD: Atraumatic. Normocephalic. EYES: Pupils equal round and reactive. Extraocular motions intact. No scleral icterus. No injection or drainage. ENT: Nose without bleeding, purulent drainage. Throat without erythema, tonsillar hypertrophy or exudate. Airway patent. NECK: Trachea midline. Non tender CARDIOVASCULAR: Regular rate and rhythm without murmurs, gallops, or rubs. RESPIRATORY: Clear to auscultation. Breath sounds equal bilaterally. No wheezes, rales, or rhonchi. GASTROINTESTINAL: Abdomen soft, non-tender, nondistended. EXTREMITIES: No edema or joint tenderness. BACK: Nontender without deformity or crepitance. No flank tenderness. NEURO: AOx3. SKIN: No rash or erythema of visible areas Initial Vital Signs Initial Vital Signs: Vital Signs Temperature 98.1 F 06/21/21 16:01 Pulse Rate 77 06/21/21 16:01 Respiratory Rate 18 06/21/21 16:01 Blood Pressure 149/89 H 06/21/21 16:01 Pulse Oximetry 99 06/21/21 16:01 <Hannah Mcdaniel DO - Last Filed: 06/22/21 09:09> Initial Vital Signs Initial Vital Signs: Vital Signs Temperature 98.1 F 06/21/21 16:01 Pulse Rate 77 06/21/21 16:01 Respiratory Rate 18 06/21/21 16:01 Blood Pressure 149/89 H 06/21/21 16:01 Pulse Oximetry 99 06/21/21 16:01 Course <DENISA Minor Last Filed: 06/21/21 19:48> Course Course Narrative: COVID-19 swab ordered. Orders Ordered: ED Orders 06/21/21 16:11 COVID19 -Nasal swab/Pre-Proc Stat Vital Signs Vital signs: Vital Signs - 8 hr 06/21/21 16:01 Temperature 98.1 F Pulse Rate 77 Respiratory Rate 18 Blood Pressure 149/89 H Pulse Oximetry 99 <DO Pao Cortez Last Filed: 06/22/21 09:09> Orders Ordered: ED Orders 06/21/21 16:11 COVID19 -Nasal swab/Pre-Proc Stat Vital Signs Vital signs: Vital Signs - 8 hr 06/21/21 16:01 Temperature 98.1 F Pulse Rate 77 Respiratory Rate 18 Blood Pressure 149/89 H Pulse Oximetry 99 MDM - URI/Sore Throat <DENISA Minor Last Filed: 06/21/21 19:48> Lab Data Labs: Lab Results 06/21/21 Range/Units 16:11 SARS-CoV-2 (PCR) Negative (Negative) MDM Narrative Medical decision making narrative: To consider viral upper respiratory infection versus COVID-19. Overall physical examination and history are reassuring. Discussed results of COVID-19 test with patient informed him that it returned negative for COVID-19. I recommended that the patient consider retesting if symptoms worsen, especially since he will be beginning a new job on Monday. Patient expresses understanding and agrees to plan. Additionally, I urged the patient to establish care with a primary care provider. Strict return precautions were discussed with the patient prior to discharge. At this time patient is stable and ready for discharge. <Hannah Mcdaniel, - Last Filed: 06/22/21 09:09> Lab Data Labs: Lab Results 06/21/21 Range/Units 16:11 SARS-CoV-2 (PCR) Negative (Negative) Discharge Plan Departure Patient Disposition: Home Clinical Impression: COVID-19 ruled out Instructions: DI for COVID-19 (Suspected or Confirmed ) Activity Restrictions/Additional Instructions: *You have been diagnosed with COVID-19 ruled out *What to do: *Please continue to take your regular medications as directed. [ ] New medication prescriptions sent to your pharmacy: [ ] [ ] New medication written as a paper prescription [X] No new medications given COVID-19 test performed in the emergency department today resulted negative for COVID-19. However, if your symptoms persist or worsen I think it would be appropriate to repeat the test. Additionally, I urge you to establish care with a primary care provider in the area. Do not hesitate to return to the emergency department if you experience worsening cough, shortness of breath, fever, or any other concerning symptoms. *Please follow up with your primary care provider in 2-3 days, call for an appointment. Let them know you were seen in the Emergency Department and that we ask that you be seen in follow up. We will electronically transmit a record of today's note if your PCP is in our system *If you do not have a primary care provider please contact the [facility] Resource line at [phone]. They will ask some questions about your medical history and help get you set up with a doctor in the community. *Return to Emergency Department if you should have any new, worsening or concerning symptoms, such as fever greater than 101 F, shaking chills, worsening pain, persistent vomiting or other bothersome symptoms. Prescriptions: No Action buprenorphine-naloxone [Suboxone] 12 MG/3 MG film 1 mirtha Sublingual Qty: 0 0RF gabapentin [Neurontin] 300 MG capsule 900 mg PO BID Qty: 180 1RF sulfamethoxazole-trimethoprim [Bactrim DS] 800-160 mg tablet 1 tab PO BID Qty: 10 0RF ondansetron HCl [Zofran] 4 mg tablet 4 mg PO Q6-8H PRN (Reason: nausea and vomiting) Qty: 7 0RF sulfamethoxazole-trimethoprim [Bactrim DS] 800-160 mg tablet 1 tab PO BID Qty: 20 0RF clindamycin HCl 300 mg capsule 300 mg PO TID Qty: 30 0RF Referrals: Sharmin Ribeiro MD [Primary Care Provider] - <Hannah Mcdaniel DO - Last Filed: 06/22/21 09:09> [facility] ED Attending Bjature Attestation: I was immediately available in the department for consultation. Documentation has been reviewed. I agree with assessment and plan.
== END 2021-06-21 18:03 | disposition home or self-care (01) ==
PROVIDERS: Emergency Medicine; Emergency Provider Physician Assistant; PCP Family Medicine
DX: R51.9 Headache, unspecified (principal); R05.9 Cough, unspecified; R43.9 Unspecified disturbances of smell and taste; Z20.822 Contact with and (suspected) exposure to COVID-19
CPT/HCPCS: 87635; 99281; 99282; C9803

== ENCOUNTER 2024-08-20 23:00 | Emergency (ER) | payer MEDICAID, SELFPAY ==
[2024-08-20 23:44] VITALS: BP 122/79; PULSE 88; RESP 16; TEMP 36.9; O2SAT 96; BMI 33.7
== END 2024-08-20 23:52 | disposition left against medical advice (07) ==
PROVIDERS: Emergency Provider Emergency Medicine; PCP Family Medicine
DX: M54.2 Cervicalgia (principal)
CPT/HCPCS: 99281

== ENCOUNTER 2024-09-03 09:35 | Emergency (ER) | payer OTHER, SELFPAY ==
[2024-09-03 09:56] VITALS: BP 133/73; PULSE 84; RESP 17; TEMP 36.6; O2SAT 97; BMI 33.0
--- NOTE | 2024-09-03 10:06 | DI.CT.S_ITS ---
PROCEDURE: CT HEAD/BRAIN WO CON INDICATIONS: head injury TECHNIQUE: Noncontrast 4.5 mm thick angled axial sections acquired from the foramen magnum to the vertex, with coronal and sagittal reformats. For radiation dose reduction, the following was used: automated exposure control, adjustment of mA and/or kV according to patient size. COMPARISON: None. FINDINGS: Image quality: Diagnostic. CSF spaces: Basal cisterns are patent. No extra-axial fluid collections. Ventricles are normal in size and shape. Brain: No midline shift. No intracranial masses or hemorrhage. Jacob-white matter interface is normal. Skull and face: Calvarium and visualized facial bones are intact, without suspicious lesions. Sinuses: Visualized sinuses and mastoids are clear. IMPRESSION: No acute intracranial pathology. Approved by: Trent Resendiz M.D. on 09/03/2024 at 10:25
--- NOTE | 2024-09-03 10:06 | DI.CT.S_ITS ---
PROCEDURE: CT CERVICAL SPINE WO CON INDICATIONS: head injury TECHNIQUE: Noncontrast 3 mm thick sections acquired from the skull base to the T4 level. Sagittal and coronal reformats were then constructed. For radiation dose reduction, the following was used: automated exposure control, adjustment of mA and/or kV according to patient size. COMPARISON: [facility], CT, C-SPINE WITHOUT CONTRAST, 08/24/2015, 11:16. FINDINGS: Image quality: Excellent. Bones: No acute fractures or dislocations. Visualized superior ribs are intact. Soft tissues: Prevertebral soft tissues are normal in thickness. No paravertebral hematomas. No apical pneumothoraces. IMPRESSION: No acute displaced fracture or traumatic subluxation. Approved by: Trent Resendiz M.D. on 09/03/2024 at 10:27
--- NOTE | 2024-09-03 12:01 | ED_ITS ---
HPI - Head Injury <Roshan Barnett PA-C - Last Filed: 09/03/24 12:23> General Chief complaint: Head Injury Stated complaint: Hit head at work Time Seen by Provider: 09/03/24 12:01 Source: patient Mode of arrival: EMS History of Present Illness HPI Narrative: 43-year-old male presents to the ED status post a closed head injury sustained at work last week. 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 Patient complains of a headache, pain on the sides of the back of his neck, some lightheadedness. No fever, chills, chest pain, shortness of breath, syncope. Related Data Home Medications Medication Instructions Recorded Confirmed baclofen 20 mg tablet 20 mg PO 3XD PRN Muscle Spasm 08/20/24 09/03/24 meloxicam 15 mg tablet 15 mg PO DAILY 08/20/24 09/03/24 buprenorphine 8 mg-naloxone 2 mg 25 mg sublingual DAILY 09/03/24 09/03/24 sublingual film (Suboxone) gabapentin 600 mg tablet 600 mg PO 3XD 09/03/24 09/03/24 Allergies Allergy/AdvReac Type Severity Reaction Status Date / Time Penicillins [PENICILLINS] Allergy Unknown Verified 09/03/24 09:15 Review of Systems <Roshan Barnett PA-C - Last Filed: 09/03/24 12:23> Constitutional Constitutional: Denies chills, Denies fatigue, Denies fever(s), Denies frequent falls, Reports headache(s), Denies lethargy and Denies weakness Eyes Eyes: Denies change in vision, Denies eye discharge, Denies irritation and Denies loss of vision ENT Ears, Nose, Mouth, and Throat: Denies change in voice, Reports dizziness, Reports headache(s), Reports neck pain, Denies sore throat and Denies throat swelling Cardiovascular Cardiovascular: Denies chest pain, Denies irregular heart rhythm, Reports lightheadedness, Denies palpitations, Denies dyspnea, Denies dyspnea on exertion and Denies orthopnea Respiratory Respiratory: Denies cough, Denies dyspnea, Denies dyspnea on exertion and Denies wheezing Gastrointestinal Gastrointestinal: Denies abdominal pain, Denies change in bowel habits, Denies diarrhea, Denies nausea and Denies vomiting Musculoskeletal Musculoskeletal: Reports neck pain and Denies numbness Integumentary/Breasts Skin/Breast: Denies pruritus, Denies erythema, Denies rash and Denies wounds Neurologic Neurologic: Denies behavioral changes, Denies confusion, Reports dizziness, Denies frequent falls, Reports headache(s), Denies loss of vision, Denies numbness and Denies weakness Psychiatric Psychiatric: Denies anxiety, Denies behavioral changes, Denies confusion, Denies depression, Denies homicidal ideation and Denies suicidal ideation Endocrine Endocrine: Denies fatigue, Denies flushing and Denies palpitations Hematologic/Lymphatic Hematologic/Lymphatic: Denies easy bruising Allergic/Immunologic Allergic/Immunologic: Denies urticaria, Denies throat swelling and Denies wheezing Patient History <Roshan Barnett PA-C - Last Filed: 09/03/24 12:23> Medical History Chronic pain syndrome tobacco type: cigarettes alcohol intake frequency: 3 or more drinks per day Alcohol type: beer Exam <Roshan Barnett PA-C - Last Filed: 09/03/24 12:23> Narrative Exam Narrative: Const General:?cooperative, healthy appearing and comfortable [facility] Head:?normal to inspection Ears:?hearing grossly normal bilaterally Nose:?external nose normal Face and sinus:?normal facial exam and sinuses nontender Mouth:?oral mucosae normal Throat:?posterior oropharynx normal Eyes General:?appearance normal, both eyes and all related structures Neck Neck:?normal visual inspection and no lymphadenopathy noted Resp Effort & Inspection:?normal respiratory effort Auscultation:?clear to auscultation bilaterally Cardio Rate:?regular rate Rhythm:?regular rhythm Musculoskeletal No midline tenderness to palpation. No paraspinal tenderness to palpation. There is full range of motion. Strength and sensation is intact. Patient is neurovascularly intact. Neuro General:?patient alert, patient awake and patient oriented x3; PERRLA; gait normal Initial Vital Signs Initial Vital Signs: Vital Signs Temperature 97.8 F 09/03/24 09:56 Pulse Rate 84 09/03/24 09:56 Respiratory Rate 17 09/03/24 09:56 Blood Pressure 133/73 09/03/24 09:56 Pulse Oximetry 97 09/03/24 09:56 Oxygen Delivery Method Room Air 09/03/24 09:56 <Donavon Avalos MD - Last Filed: 09/04/24 07:03> Initial Vital Signs Initial Vital Signs: Vital Signs Temperature 97.8 F 09/03/24 09:56 Pulse Rate 84 09/03/24 09:56 Respiratory Rate 17 09/03/24 09:56 Blood Pressure 133/73 09/03/24 09:56 Pulse Oximetry 97 09/03/24 09:56 Oxygen Delivery Method Room Air 09/03/24 09:56 Course <Rosahn Barnett PA-C - Last Filed: 09/03/24 12:23> Orders Ordered: ED Orders 09/03/24 10:06 CT cervical spine wo con Stat CT head/brain wo con Stat Vital Signs Vital signs: Vital Signs - 8 hr 09/03/24 09:56 Temperature 97.8 F Pulse Rate 84 Respiratory Rate 17 Blood Pressure 133/73 Pulse Oximetry 97 Oxygen Delivery Method Room Air <Donavon Avalos MD - Last Filed: 09/04/24 07:03> Orders Ordered: ED Orders 09/03/24 10:06 CT cervical spine wo con Stat CT head/brain wo con Stat Vital Signs Vital signs: Vital Signs - 8 hr 09/03/24 09:56 Temperature 97.8 F Pulse Rate 84 Respiratory Rate 17 Blood Pressure 133/73 Pulse Oximetry 97 Oxygen Delivery Method Room Air MDM - Head Injury <Roshan Barnett PA-C - Last Filed: 09/03/24 12:23> MDM Narrative Medical decision making narrative: 43-year-old male presents to the ED status post a closed head injury sustained at work last week. CT scans of the head and neck without acute findings. Symptoms most you whiplash injury we of the neck, concussion from the head injury. Counseled patient on signs and symptoms of a concussion, the importance of physical and cognitive rest for good healing. Recommend Tylenol, ibuprofen for aches and pains. Recommend follow-up with PCP for further evaluation. ED return precautions discussed with patient. Patient verbalized understanding. Medical records reviewed: Yes Discharge Plan Departure Patient Disposition: Home Clinical Impression: Head injury Qualifiers: Encounter type: initial encounter Qualified Code(s): S09.90XA - Unspecified injury of head, initial encounter Instructions: Concussion, DI for Closed Head Injury Activity Restrictions/Additional Instructions: You were evaluated in the ED today for a head injury. The CT scans of the head and neck were normal. It appears that you might be suffering symptoms of a concussion from the head injury as well as whiplash symptoms in your neck. It is recommended for a concussion that you exercise physical and cognitive rest until you are symptom-free. You may take Tylenol, ibuprofen for aches and pains. Please follow-up with your PCP as soon as possible for further evaluation. Return to the ED if you have worsening symptoms. Prescriptions: No Action buprenorphine-naloxone [Suboxone] 8-2 mg film 25 mg sublingual DAILY gabapentin 600 mg tablet 600 mg PO 3XD meloxicam 15 mg tablet 15 mg PO DAILY baclofen 20 mg tablet 20 mg PO 3XD PRN (Reason: Muscle Spasm) Referrals: Sharmin Ribeiro MD [Primary Care Provider] - Stand Alone Forms: Patient Portal/API/Survey, Work Release Note ED Sign-out <Donavon Avalos MD - Last Filed: 09/04/24 07:03> Cosign ED Attending Cosignature Attestation: I was immediately available in the department for consultation. This documentation has been reviewed and I agree with assessment and plan. Supervised by Donavon Avalos MD
[2024-09-03 12:16] VITALS: BP 117/74; PULSE 76; RESP 16; O2SAT 98
== END 2024-09-03 12:16 | disposition home or self-care (01) ==
PROVIDERS: Emergency Provider Student in an Organized Health Care Education/Training Program; PCP Family Medicine
DX: S09.90XA Unspecified injury of head, initial encounter (principal); M54.2 Cervicalgia; R42 Dizziness and giddiness; W22.09XA Striking against other stationary object, initial encounter; Y93.89 Activity, other specified; Y99.0 Civilian activity done for income or pay
CPT/HCPCS: 70450; 72125; 99281; 99284

== ENCOUNTER 2024-10-30 18:43 | Emergency (ER) | payer OTHER, SELFPAY ==
[2024-10-30 19:29] VITALS: BP 139/80; PULSE 89; RESP 21; TEMP 36.6; O2SAT 98; BMI 34.0
[2024-10-30 22:53] VITALS: O2SAT 98
[2024-10-30 22:54] VITALS: BP 146/88; PULSE 80; RESP 18; O2SAT 98
[2024-10-31 00:20] VITALS: PULSE 74; O2SAT 98
[2024-10-31 00:22] VITALS: BP 132/69; PULSE 73; O2SAT 97
[2024-10-31 00:28] VITALS: BP 130/68; PULSE 71; RESP 16; O2SAT 96
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
[2024-10-31 00:30] VITALS: BP 133/73; PULSE 68; O2SAT 96
[2024-10-31 01:00] VITALS: BP 136/80; PULSE 70; RESP 16; O2SAT 99
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
[2024-10-31 01:19] LABS: Add Manual Diff / Slide Review NO; Basophils Absolute Auto 0 /uL (0-100); Basophils Percent Auto 0.4 % (0-2); Eosinophils Absolute Auto 300 /uL (0-450); Eosinophils Percent Auto 5.2 % (2-4); Hematocrit 38.7 % (41-53); Hemoglobin 13.5 g/dL (13.5-17.5); Lymphocytes Absolute Auto 2100 /uL (1100-4500); Lymphocytes Percent Auto 35.5 % (25-40); Mean Corpuscular HGB Conc 34.9 % (30-36); Mean Corpuscular Volume 91.7 fL (80-100); Monocytes Absolute Auto 400 /uL (0-900); Neutrophils Absolute Auto 3100 /uL (1500-7000); Neutrophils Percent Auto 51.9 % (50-75); Platelet Count 274 X10^3/uL (150-400); Red Blood Cell Count 4.23 X10^6/uL (4.5-5.9); Red Cell Distribution Width 13.7 % (11.6-14.8)
[2024-10-31 01:30] LABS: Alanine Aminotransferase 35 IU/L (<50); Albumin 4.2 g/dL (3.5-5.0); Albumin Globulin Ratio 1.6 (1.0-2.8); Alkaline Phosphatase 79 U/L (38-126); Aspartate Aminotransferase 34 IU/L (17-59); BUN Creatinine Ratio 21.6 (6-22); Bilirubin Total 0.4 mg/dL (0.2-1.3); Blood Urea Nitrogen 16 mg/dL (9-20); Calcium 9.1 mg/dL (8.4-10.2); Carbon Dioxide 29 mmol/L (22-32); Chloride 104 mmol/L (98-107); Estimated Glomerular Filt Rate > 60 mL/min (>60); Globulin 2.6 g/dL (1.7-4.1); Glucose 130 mg/dL (70-99); HEMOLYSIS < 15 (0-50); Lipase 90 U/L (23-300); Potassium 3.8 mmol/L (3.4-5.1); Sodium 139 mmol/L (137-145); Total Protein 6.8 g/dL (6.3-8.2)
--- NOTE | 2024-10-31 02:05 | PC.NURSE ---
Pt able to sleep without interruption after assessment. Ambulates independently to bathroom. Movements are slow and steady but able to move independently.
[2024-10-31 02:24] VITALS: BP 122/59; PULSE 77; RESP 16; O2SAT 99
== END 2024-10-31 02:25 | disposition home or self-care (01) ==
PROVIDERS: Emergency Provider Emergency Medicine; PCP Family Medicine
DX: S22.31XA Fracture of one rib, right side, initial encounter for closed fracture (principal); S90.32XA Contusion of left foot, initial encounter; S30.0XXA Contusion of lower back and pelvis, initial encounter; R91.8 Other nonspecific abnormal finding of lung field; Q79.0 Congenital diaphragmatic hernia; V86.95XA Unspecified occupant of 3- or 4- wheeled all-terrain vehicle (ATV) injured in nontraffic accident, initial encounter
CPT/HCPCS: 36415; 71260; 73630; 74177; 80053; 83690; 85025; 99283; 99284; Q9967

== ENCOUNTER 2024-11-13 14:51 | Emergency (ER) | payer OTHER, SELFPAY ==
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
[2024-11-13 15:13] VITALS: BP 140/73; PULSE 80; RESP 20; TEMP 37; O2SAT 96; BMI 33.0
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
== END 2024-11-13 18:47 | disposition home or self-care (01) ==
PROVIDERS: Emergency Provider Emergency Medicine; PCP Family Medicine
DX: S46.912A Strain of unspecified muscle, fascia and tendon at shoulder and upper arm level, left arm, initial encounter (principal); S13.4XXA Sprain of ligaments of cervical spine, initial encounter; M54.50 Low back pain, unspecified; M62.838 Other muscle spasm; V89.2XXA Person injured in unspecified motor-vehicle accident, traffic, initial encounter
CPT/HCPCS: 70450; 71046; 72070; 72100; 72125; 99281; 99284

== ENCOUNTER 2025-04-21 21:11 | Emergency (ER) | payer OTHER, SELFPAY ==
[2025-04-21 21:19] VITALS: BP 144/87; PULSE 99; RESP 18; TEMP 36.6; O2SAT 95; BMI 34.0
--- NOTE | 2025-04-21 21:25 | ED.URI ---
HPI - URI/Sore Throat General Chief Complaint: Upper Respiratory Symptoms Stated Complaint: covid Time Seen by Provider: 04/21/25 21:18 Source: patient Mode of arrival: Ambulatory History of Present Illness HPI Narrative: 44-year-old male patient with a history of chronic pain issues and Suboxone who complains of cough, congestion, scratchy throat and no energy for 2 weeks. Subjective chills but no documented fever. He does smoke but denies wheezing or shortness of breath Related Data Home Medications ?Medication ?Instructions ?Recorded ?Confirmed baclofen 20 mg tablet 20 mg PO 3XD PRN Muscle Spasm 08/20/24 02/14/25 meloxicam 15 mg tablet 15 mg PO DAILY 08/20/24 02/14/25 buprenorphine 8 mg-naloxone 2 mg 25 mg sublingual DAILY 09/03/24 02/14/25 sublingual film (Suboxone) gabapentin 600 mg tablet 600 mg PO 3XD 09/03/24 02/14/25 Previous Rx's ?Medication ?Instructions ?Recorded meloxicam 7.5 mg tablet 7.5 mg PO BID PRN pain #10 tabs 10/31/24 diclofenac sodium 100 mg 100 mg PO DAILY #20 tabs 11/13/24 tablet,extended release 24 hr methocarbamol 500 mg tablet 500 mg PO TID PRN spasms #14 tabs 11/13/24 tizanidine 6 mg capsule 6 mg PO BID PRN muscle spasticity 11/13/24 #20 caps azithromycin 250 mg tablet 250 mg PO DAILY 4 days #4 tabs 04/21/25 Allergies Allergy/AdvReac Type Severity Reaction Status Date / Time Penicillins (PENICILLINS) Allergy Unknown Verified 04/21/25 21:19 Review of Systems Review of Systems ROS Unobtainable: All systems reviewed & are unremarkable except as noted in HPI and below Constitutional Constitutional: Reports as per HPI ENT Ears, Nose, Mouth, and Throat: Reports as per HPI Respiratory Respiratory: Reports as per HPI Patient History Medical History (Updated 04/21/25 @ 22:47 by Evans Carlson MD) Insect sting Chronic pain syndrome Social History Smoking Status: Current every day smoker Smoking Status: Current every day smoker tobacco type: cigarettes alcohol intake frequency: 3 or more drinks per day Alcohol type: beer Exam Narrative Exam Narrative: General: Alert and conversant. No distress. Appears well nourished and well hydrated Craniofacial: No evidence of trauma. Nontender and no swelling. Eyes: PERRLA EOMI conjunctiva clear HEENT: Tragus, pinnae nontender. Tympanic membranes normal appearance. Oropharynx clear with no swelling, exudate or asymmetry of the pharynx. Nares clear. No sinus tenderness Neck: No tenderness or adenopathy. No meningismus. Lungs: Clear to auscultation with good air movement. No wheezing, rales or rhonchi. No respiratory distress Cardiac: Regular rate and rhythm with no appreciable murmur or gallop Abdomen: Soft, nontender with no distention or masses. Normal bowel sounds. No rebound or guarding Musculoskeletal: Exam of the extremities, axial spine and ribcage reveals no deformity, bony tenderness or swelling. Range of motion intact Neuro: Alert and oriented. Cranial nerves, motor, sensory and cerebellar all grossly intact. No focal deficit Skin: Warm and normal color. No rashes Psychological: Normal affect and interaction. No evidence of delusion or psychosis. Normal mood. Initial Vital Signs Initial Vital Signs: Vital Signs Temperature 97.9 F 04/21/25 21:19 Pulse Rate 99 H 04/21/25 21:19 Respiratory Rate 18 04/21/25 21:19 Blood Pressure 144/87 H 04/21/25 21:19 Pulse Oximetry 95 04/21/25 21:19 Oxygen Delivery Method Room Air 04/21/25 21:19 Course Orders Ordered: ED Orders 04/21/25 21:26 Respiratory Panel (Film Array) Stat Discontinued Medications Azithromycin (Azithromycin 250 Mg Tablet) 500 mg PO NOW ONE Stop: 04/21/25 22:39 Last Admin: 04/21/25 22:50 Dose: 500 mg Documented By: KATHERIN Vital Signs Vital signs: Vital Signs - 8 hr 04/21/25 21:19 04/21/25 22:55 Temperature 97.9 F Pulse Rate 99 H 92 H Respiratory Rate 18 20 Blood Pressure 144/87 H 139/70 Pulse Oximetry 95 96 Oxygen Delivery Method Room Air Room Air MDM - URI/Sore Throat Differential Diagnosis Differential diagnosis: Likely upper respiratory infection, viral infection, bronchitis and influenza Medical Records Attestation: I reviewed the patient's medical records. Lab Data Attestation: I reviewed the patient's lab results. Labs: Lab Results 04/21/25 Range/Units 21:26 Chlamy pneumoniae PCR Not detected (Not Detect) Adenovirus (PCR) Not detected (Not Detect) B. pertussis DNA (PCR) Not detected (Not Detect) B.parapertussis DNA PCR Not detected (Not Detecte) Coronavirus OC43 (PCR) Not detected (Not Detect) Coronavirus HKU1 (PCR) Not detected (Not Detect) Coronavirus 229E (PCR) Not detected (Not Detect) SARS-CoV-2 (PCR) Not detected (Not Detecte) Coronavirus NL63 (PCR) Not detected (Not Detect) Human Metapneumovir PCR Not detected (Not Detect) Influenza Type A (PCR) Not detected (Not Detect) Influenza Type B (PCR) Not detected (Not Detect) M. pneumoniae (PCR) Not detected (Not Detect) Parainfluenza 1 (PCR) Not detected (Not Detect) Parainfluenza 2 (PCR) Not detected (Not Detect) Parainfluenza 3 (PCR) Not detected (Not Detect) Parainfluenza 4 (PCR) Not detected (Not Detect) RSV (PCR) Not detected (Not Detect) Entero/Rhino (PCR) Not detected (Not Detect) MDM Narrative Medical decision making narrative: Patient has symptoms of viral URI with negative viral testing but his son had a positive chlamydia pneumonia test and patient is requesting antibiotics, at least as a backup. I discussed this with him and was willing to give a backup prescription for azithromycin for possible atypical pneumonia. Otherwise supportive care with rest, fluids and follow up as needed. Discharge Plan Departure Patient Disposition: Home Clinical Impression: Upper respiratory disease Instructions: DI for Viral Upper Respiratory Infection -- Adult Activity Restrictions/Additional Instructions: Assessment: Symptoms of viral URI but persistent and household partner/son has positive atypical pneumonia test. Plan: Could treat with rest, fluids and [id number] medicine. But may use azithromycin prescription for persistent symptoms. Follow up with your doctor as needed. Prescriptions: New azithromycin 250 mg tablet 250 mg PO DAILY 4 Days Qty: 4 0RF Rx Instructions: start on day 2 of therapy No Action buprenorphine-naloxone [Suboxone] 8-2 mg film 25 mg sublingual DAILY gabapentin 600 mg tablet 600 mg PO 3XD meloxicam 15 mg tablet 15 mg PO DAILY baclofen 20 mg tablet 20 mg PO 3XD PRN (Reason: Muscle Spasm) meloxicam 7.5 mg tablet 7.5 mg PO BID PRN (Reason: pain) Qty: 10 0RF diclofenac sodium 100 mg tablet extended release 24 hr 100 mg PO DAILY Qty: 20 0RF tizanidine 6 mg capsule 6 mg PO BID PRN (Reason: muscle spasticity) Qty: 20 0RF methocarbamol 500 mg tablet 500 mg PO TID PRN (Reason: spasms) Qty: 14 0RF Stand Alone Forms: Patient Portal/API
[2025-04-21 22:25] LABS: Coronavirus NL 63 Not Detected (Not Detect); SARS- CoV-2 Not Detected (Not Detecte)
[2025-04-21] MEDS: AZITHROMYCIN 250 MG TABLET 500 MG PO (22:50)
[2025-04-21 22:55] VITALS: BP 139/70; PULSE 92; RESP 20; O2SAT 96
== END 2025-04-21 23:13 | disposition home or self-care (01) ==
PROVIDERS: Emergency Provider Emergency Medicine
DX: J06.9 Acute upper respiratory infection, unspecified (principal); F17.200 Nicotine dependence, unspecified, uncomplicated
CPT/HCPCS: 87633; 99283